=== PATIENT | male | born 1960 | race Caucasian/White ===

== ENCOUNTER → 2021-01-12 | Outpatient (CLI) | payer OTHER ==
--- NOTE | 2021-01-12 09:16 | KCIC ---
EXAMINATION: Magnetic resonance imaging (MRI) of the lumbar spine without contrast 01/12/2021 8:02 AM HISTORY: Lumbar pain and strain. Low back pain radiating upwards for one month. TECHNIQUE: Multiplanar multi-weighted MRI of the lumbar spine was performed without intravenous contr ast using the standard lumbar spine protocol. Contrast information: None administered. COMPARISON: None available. FINDINGS: The alignment of the lumbar spine is normal. There is a L4 osseous hemangioma. Vertebral bodies demo nstrate normal signal intensity on all sequences. There are no compression fractures. The conus med ullaris terminates at the level of L1. The distal spinal cord signal intensity is normal. Interverte bral disks have normal height and signal intensity. There are no annular fissures identified. Limite d views of the abdomen and pelvis show no soft tissue abnormality. The aorta is normal. L1-L2: The disc is normal in configuration. There is no facet arthropathy. There is no neuroforaminal stenosis. There is no spinal canal stenosis. L2-L3: The disc is normal in configuration. There is no facet arthropathy. There is no neuroforaminal stenosis. There is no spinal canal stenosis. L3-L4: Mild disc bulge. There is no facet arthropathy. There is no neuroforaminal stenosis. There is no spinal canal stenosis. L4-L5: The disc is normal in configuration. There is mild to moderate facet arthropathy. There is no neuroforaminal stenosis. There is no spinal canal stenosis. L5-S1: Mild disc bulge with central annular fissure. There is mild facet arthropathy. There is no magali roforaminal stenosis. There is no spinal canal stenosis. IMPRESSION: Mild degenerative changes of the lumbar spine as described in detail above. Electronically signed by: Theresa Swenson MD (01/12/2021 9:13 AM) [id number]
== END ==
LOC: KCIC MRI 07:54
PROVIDERS: ATTEND Nurse Practitioner Family
DX: M47.816 Spondylosis without myelopathy or radiculopathy, lumbar region (principal)
CPT/HCPCS: 72148